=== PATIENT | male | born 2005 | race Caucasian/White ===

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

== ENCOUNTER → 2024-02-01 08:56 | Outpatient (REF) | payer OTHER, SELFPAY | LOC: HO.SL 08:56 | PROVIDERS: PCP Family Medicine; Visit Provider Physician Assistant Medical | DX: R06.83 Snoring (principal); G47.8 Other sleep disorders; R40.0 Somnolence; G47.10 Hypersomnia, unspecified | CPT/HCPCS: 95806 ==

== ENCOUNTER → 2024-02-02 09:33 | Outpatient (BNV) | payer OTHER, SELFPAY | PROVIDERS: PCP Family Medicine; Visit Provider Internal Medicine | DX: G47.10 Hypersomnia, unspecified (principal); R06.83 Snoring | CPT/HCPCS: 95806 ==

== ENCOUNTER 2024-02-29 02:18 | Emergency (ER) | payer OTHER, SELFPAY ==
[2024-02-29] VITALS (11 sets, daily range): BP systolic 89–148; BP diastolic 47–80; PULSE 73–113; RESP 16–22; TEMP 36.4–36.8; O2SAT 93–98; BMI 26.4
--- NOTE | 2024-02-29 02:30 | PC.NURSE ---
i'm not depressed, i just want to kill somebody . pt aggressively attempting to get out of restraints. security at bedside
--- NOTE | 2024-02-29 02:40 | ED_ITS ---
HPI - General Adult General Chief complaint: Psychiatric Symptoms Stated complaint: Psych eval, SI/HI in custody Time Seen by Provider: 02/29/24 02:25 Source: family (Parents), EMS and police Mode of arrival: EMS Limitations: altered mental status History of Present Illness ED Provider: DR. Lua HPI narrative: Patient was found by the police wandering the streets EMS was called, Unable to obtain history from the patient due to agitation and aggression, parents at the bedside patient with history ADHD, chronic major depression with treatment, suicidal ideation. Parents think that he drinks alcohol occasionally do not think other substance abuse except for marijuana. Related Data Home Medications ?Medication ?Instructions ?Recorded ?Confirmed fluoxetine 40 mg capsule 40 mg PO DAILY 09/15/23 09/15/23 lisdexamfetamine 10 mg capsule 20 mg PO DAILY 09/15/23 09/15/23 trazodone 50 mg tablet 50 mg PO DAILY 09/15/23 09/15/23 Allergies Allergy/AdvReac Type Severity Reaction Status Date / Time Seasonal Allergies Allergy Mild Watery Eye Verified 02/29/24 02:42 Review of Systems 2 Review of Systems: Yes Unobtainable due to mental condition PMFSH Past Medical History Medical History IFG (impaired fasting glucose) Daytime somnolence Snoring Non-restorative sleep ADHD Surgical History History of placement of ear tubes Family History Family History Father High blood pressure Paternal Grandfather High blood pressure Melanoma Maternal Grandfather Substance abuse in family Paternal Uncle Mental health disorder Unknown Mental health disorder Social History Social History Household Members: Family Housing: House Are you a primary adult daycare coordinator to a significant other at home: No Do you presently have visiting nurse or other home services: No Alcohol intake: current Alcohol intake frequency: holidays/special occasions only Alcohol type: beer and hard liquor Patient Tobacco Use Status: Never used Tobacco e-Cigarette/Vaping Use: Currently Using Second Hand Smoke Exposure: No Substance Use Type: Marijuana Special debbi needs: No Advance Directives: No Advance Directives Information Provided: Yes service: No Current occupational status: unemployed Cognitive needs: No Hearing needs: No Vision needs: No Physical Exam ED Vital Signs: Vital Signs - 24 hr 02/29/24 02:41 02/29/24 02:55 02/29/24 03:10 Temperature 98.3 F 98.0 F Pulse Rate 113 H 96 90 Respiratory Rate 22 H 21 H 20 Blood Pressure 116/67 93/57 L 100/54 L Pulse Oximetry 95 93 Oxygen Delivery Method Room Air Room Air Room Air 02/29/24 03:25 02/29/24 04:00 02/29/24 06:00 Temperature 97.6 F Pulse Rate 91 89 75 Respiratory Rate 21 H 16 19 Blood Pressure 108/49 L 92/47 L 89/53 L Pulse Oximetry 93 95 Oxygen Delivery Method Room Air Room Air Room Air 02/29/24 06:09 02/29/24 06:43 Temperature Pulse Rate 73 Respiratory Rate 16 Blood Pressure 96/48 L 99/53 L Pulse Oximetry 95 Oxygen Delivery Method Room Air BMI result Body Mass Index 26.4 Vital signs have been reviewed and appear to be correct. Blood pressure elevated. Heart rate normal. Respiratory rate normal. Temperature normal. Oxygen saturation normal. Appearance: Alert. Awake agitated, belligerent. Head: Normal external exam. Normocephalic. Atraumatic. No Kelly signs noted. raccoon eyes noted Eyes: PERRLA. EOMI. Conjunctiva and sclera normal. Eyelids normal. ENT: TM's Normal. Pharynx normal. Uvula midline. Moist mucous membranes. No trismus noted. No drooling noted. No muffled voice noted. Neck: Normal inspection. Neck supple. FROM. No adenopathy. Thyroid Normal. No meningeal signs. No neck mass noted. CVS: Normal heart rate and rhythm. Heart sound normal. No murmurs noted. Pulses normal throughout. Respiratory: No respiratory distress. Painless inspiration. Breath sounds normal. No wheezes/rales/rhonchi noted. Chest nontender. No accessory muscle usage noted or decreased air movement noted. Abdomen: Soft and nontender. Bowel sounds normal in all 4 quadrants. No distention noted. No organomegaly noted. No visible injury noted. Back: No CVA tenderness. Full range of motion noted. Skin: Skin warm and dry. Normal skin color. Normal skin turgor. No rashes/lesions/lacerations noted. Extremities: No lower extremity edema. Extremities exhibit normal range of motion. Extremities nontender. Neuro: Cranial nerve exam: II-XII are grossly intact No motor deficit. No sensory deficit. Reflexes normal. Course Reevaluation(s) Reevaluation #1: Patient is sedated and off physical restraints, signed out to Dr. George for further evaluation when he is awake and care team evaluation. Time: 07:13 Medications Administered Discontinued Medications Generic Name Dose Route Start Last Admin Trade Name Freq PRN Reason Stop Dose Admin Diphenhydramine HCl 50 mg 02/29/24 02:26 02/29/24 02:53 Diphenhydramine Hcl 50 Mg/Ml Vial IM 02/29/24 02:27 50 mg ONCE ONE Administration Haloperidol Lactate 5 mg 02/29/24 02:26 02/29/24 02:53 Haloperidol Lactate 5 Mg/Ml Vial IM 02/29/24 02:27 5 mg ONCE ONE Administration Lorazepam 2 mg 02/29/24 02:26 02/29/24 02:53 Lorazepam 2 Mg/Ml Vial IM 02/29/24 02:27 2 mg ONCE ONE Administration Medical Decision Making Differential Diagnosis Differential Diagnoses: The differential diagnosis associated with the presentation includes (SI, HI, substance abuse, alcohol intoxication.) Admission/Observation Consideration of admission/observation: Escalation of care including admission/observation considered Lab Data MDM Lab Attestation statement: I reviewed the patient's lab results. 02/29/24 03:09 02/29/24 03:09 Labs: Lab Results 02/29/24 Range/Units 03:09 WBC 9.7 (4.8-10.8) X10*3/uL RBC 4.90 (4.60-5.80) X10*6/uL Hgb 14.5 (14.0-18.0) g/dl Hct 43.0 (42.0-52.0) % MCV 87.8 (80.0-98.0) fL MCH 29.6 (27.0-33.0) pg MCHC 33.7 (31.0-36.0) g/dl RDW 12.6 (11.0-16.0) % Plt Count 220 (160-400) X10*3/uL MPV 11.1 (9.4-12.4) fL Immature Gran % (Auto) 0.3 (0.0-0.4) % Neut % (Auto) 57.4 (45-73) % Lymph % (Auto) 31.7 (20-40) % [place] % (Auto) 6.2 (2-11) % Eos % (Auto) 3.8 (0-4) % Baso % (Auto) 0.6 (0-2) % Lymph # (Auto) 3.1 (1.2-4.9) X10*3/uL [place] # (Auto) 0.6 (0.1-1.2) X10*3/uL Eos # (Auto) 0.4 (0.0-0.4) X10*3/uL Baso # (Auto) 0.1 (0.0-0.2) X10*3/uL Abs Immat Gran (auto) 0.03 (0.00-0.03) X10*3/uL Absolute Neuts (auto) 5.5 (2.0-8.3) x10*3/uL Absolute Nucleated RBC 0.000 (0.0-0.012) X10*3/uL Nucleated RBC % (auto) 0.0 (0.0-0.2) /100WBC Sodium 143 (135-145) mmol/L Potassium 3.3 (3.3-5.1) mmol/L Chloride 108 (96-108) mmol/L Carbon Dioxide 18 L (22-29) mmol/L Anion Gap 20 (12-20) BUN 9 (9-16) mg/dL Creatinine 0.94 (0.5-1.4) mg/dL Estim Creat Clear Calc 138.7 Estimated GFR > 60 Random Glucose 109 (60-115) mg/dL Calcium 9.0 (8.4-10.2) mg/dL Ethyl Alcohol 153 mg/dL Discharge Plan Discharge Clinical Impression: Alcohol intoxication, Suicidal ideation Patient Disposition: Still a Patient Prescriptions: No Action fluoxetine 40 mg capsule 40 mg PO DAILY trazodone 50 mg tablet 50 mg PO DAILY lisdexamfetamine 10 mg capsule 20 mg PO DAILY Print Language: Senegalese
[2024-02-29] MEDS: LORazepam 2 MG/ML VIAL IM (02:53)
[2024-02-29] MEDS: Haloperidol Lactate 5 MG/ML VIAL IM (02:53)
[2024-02-29] MEDS: diphenhydrAMINE HCL 50 MG/ML VIAL IM (02:53)
--- NOTE | 2024-02-29 02:57 | PC.NURSE ---
Mom and dad here, patient phone given to mom and dad at this time.......
[2024-02-29 03:12] LABS: MANUAL DIFF FLAG NO
[2024-02-29 03:13] LABS: Basophils Absolute Auto 0.1 X10*3/uL (0.0-0.2); Basophils Percent Auto 0.6 % (0-2); Eosinophils Absolute Auto 0.4 X10*3/uL (0.0-0.4); Eosinophils Percent Auto 3.8 % (0-4); Hemoglobin 14.5 g/dl (14.0-18.0); Imm Gran Abs Auto 0.03 X10*3/uL (0.00-0.03); Imm Gran Pct Auto 0.3 % (0.0-0.4); Lymphocytes Absolute Auto 3.1 X10*3/uL (1.2-4.9); Lymphocytes Percent Auto 31.7 % (20-40); Mean Corpuscular HGB Conc 33.7 g/dl (31.0-36.0); Mean Corpuscular Hemoglobin 29.6 pg (27.0-33.0); Mean Corpuscular Volume 87.8 fL (80.0-98.0); Mean Platelet Volume 11.1 fL (9.4-12.4); Monocytes Absolute Auto 0.6 X10*3/uL (0.1-1.2); Monocytes Percent Auto 6.2 % (2-11); Neutrophils Absolute Auto 5.5 x10*3/uL (2.0-8.3); Neutrophils Percent Auto 57.4 % (45-73); Platelet Count 220 X10*3/uL (160-400); Red Cell Distribution Width 12.6 % (11.0-16.0); White Blood Count 9.7 X10*3/uL (4.8-10.8)
[2024-02-29 03:28] LABS: Anion Gap 20 (12-20); Blood Urea Nitrogen 9 mg/dL (9-16); Carbon Dioxide 18 mmol/L (22-29); Chloride 108 mmol/L (96-108); Creatinine Clr Calc Pharmacy 138.7; Estimated Glomerular Filt Rate > 60; Ethanol 153 mg/dL; Glucose Random 109 mg/dL (60-115); Potassium 3.3 mmol/L (3.3-5.1); Sodium 143 mmol/L (135-145)
--- NOTE | 2024-02-29 03:37 | PC.NURSE ---
Patient adamently refused the enema down here in the emergency department; studio set up worker Micah at bedside interpreting for this nurse. Charge nurse notified that patient is refusing the enema down here in the ED at this time, in the patients exact words, I don't want to shit myself. MD is aware that enema has not been given yet. To protect patient dignitiy and rights this nurse will not administer the enema per the patient request.
--- NOTE | 2024-02-29 04:08 | PC.NURSE ---
Patient's parents brought back to see patient for comfort and reassurance. Parents both expressed that the patient is dyslexic, has ADHD, is very literal, and has both expressive and receptive learning disability. Cornell and Monica are parents and can be reached at [phone]
--- NOTE | 2024-02-29 07:13 | PC.NURSE ---
patient resting with eyes closed, even and unlabored respirations. remains on awake overnight monitor. 1:1 patient observer at bedside. no obvious signs/symptoms of distress. plan for patient to ambulate trial and go to pod when awake.
--- NOTE | 2024-02-29 08:55 | PC.NURSE ---
Addendum entered by Nina Fry 02/29/24 09:19: belongings placed in aldo port shelf 2 Original Note: family visited briefly, brought clothes and shoes for patient pending discharge - searched by security.
--- NOTE | 2024-02-29 09:14 | MHC.CARE ---
Per pt's AM nurse, there was no enema ordered on this pt. Previous notes must have been made in error.
--- NOTE | 2024-02-29 13:33 | MHC.CARE ---
Referrals to [facility] & [facility] completed.
[2024-02-29 13:59] LABS: Amphetamine Screen Urine POSITIVE (Not Detect); Barbiturates, Urine Not Detected (Not Detect); Benzodiazepines Screen Urine Not Detected (Not Detect); Buprenorphine Scr Not Detected (Not Detect); Cannabinoid Screen Urine POSITIVE (Not Detect); Cocaine Screen Urine Not Detected (Not Detect); Fentanyl, urine Not Detected (Not Detect); Methadone Screen, Urine Not Detected (Not Detect); Opiate Screen Urine Not Detected (Not Detect); Oxycodone Screen Urine Not Detected (Not Detect); Phencyclidine Screen Urine Not Detected (Not Detect)
== END 2024-02-29 13:44 | disposition home or self-care (01) ==
PROVIDERS: Emergency Medicine; Emergency Provider Emergency Medicine
DX: F10.129 Alcohol abuse with intoxication, unspecified (principal); R45.851 Suicidal ideations; Y90.6 Blood alcohol level of 120-199 mg/100 ml; Z51.81 Encounter for therapeutic drug level monitoring; Z79.899 Other long term (current) drug therapy; Z71.41 Alcohol abuse counseling and surveillance of alcoholic
CPT/HCPCS: 36415; 80048; 80307; 85025; 96372; 99284; 99285; J1200; J1630; J2060; S9485

== ENCOUNTER 2024-03-21 11:15 | Outpatient (RCR) | payer OTHER, SELFPAY ==
[2024-03-03 11:43] VITALS: BMI 29.0
[2024-03-03 11:44] VITALS: BP 114/80; PULSE 88; TEMP 37.2
--- NOTE | 2024-03-03 15:47 | PC.ADMIT ---
Patient is a 18 year old single male who was referred to [facility] by [facility] care team. Per records patient presented to ER via EMS for SI and HI. Patient was in police custody and was voluntarily handcuffed as this was the only way patient would agree to go into the ambulance if he was handcuffed. He reportedly attempted to strangle himself with straps and cuffs with is hands to his throat while in the ED. He stated, I don't have the balls to go through it. He has a history of SI statements in the past and appeared intoxicated at the time. BAL 153 on 02/29/24. Toxicology screen positive for Marijuana. Patient reportedly called EMS on himself and was having issues r/t a female and new job prospect causing him stress. I asked patient what happened prior to coming to the ER and he stated, It was February 26 I came into the ER based off alcohol but before drinking the alcohol I had feelings I wanted to in a general sense. I had 2 beers and 3-4 shots I felt it was a cry for help at that point. I called the suicide hotline and they did not answer and I ended up calling 911. I was 8 months sober and ended up relapsing twice. I reached out to get help . Patient reports goal of treatment is to find happiness and better well being on life and a better outcome. Regarding employment patient stated, I started a job I have orientation on the . Patient is currently alert and oriented x4. Calm and cooperative. He presented with anxious mood and affect. He denied SI. He was given a copy of his safety plan if needed. Regarding HI he stated, I kind of have harmful intrusive thoughts about people that are on and off they pop up once in a while. I'm looking over my shoulder more, I feel like I'm being followed in a way. I'm on edge. If I'm with my family of friends those feelings go away. He reports the harmful thoughts are not toward anyone specific. He stated, not toward anyone in specific to kill someone. It is intriguing to me. I don't have a plan because I don't want to upset my parents . I asked him what are the thoughts like and he stated, When I walk into a room I think oh they are easy to kill. I have been feeling this way for the past 11 months. Patient reports no plans or intent to kill anyone. He stated, As long as my mom or dad are alive and I know how they would feel . Dr. Sandoval was informed. Medications reconciled with patient and patient's pharmacy. He reports taking medications as prescribed. Stated he is no longer taking Trazodone last filled April 2023. Patient reports alcohol use drinking 2 beers and 5 shots. He stated, I have been sober for 9 months and 2 months ago i relapsed for the first time and I did it again on the . Reports he uses marijuana and has cut down his use now using 1/8th every 2 weeks compared to daily use.
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
--- NOTE | 2024-03-08 10:37 | HO.PHP ---
[facility] staff member faxed over a referral for OP therapy and a passenger coach driver to [facility] for Mello. [facility] staff member is awaiting on a phone call back with those scheduled dates and appointment times.
--- NOTE | 2024-03-08 15:28 | HO.PHP ---
[facility] staff member reached out to Mello to make sure he is safe due to him leaving program before the last group began. Mello did not answer his phone and a voicemail was left. Mello did not return the clinician's phone call, which led to the clinician reaching out to his mother Monica. Monica was unaware if he was okay but stated she would contact me and call me back. Monica mentioned that she was able to get a hold of him and stated that he informed her that he left the program because it was too hot in the room and it was causing him a headache. [facility] staff member was receptive and informed her that if he does have to leave again in the future to just make the team aware so we can help support. Monica voiced that she will reiterate that information to him. Monica explored what we are doing for the last group as well and speculated if his learning disability is playing a role in to why he is leaving before that group. [facility] staff member disclosed that from what she has observed Mello has been doing well within the group setting. Monica expressed that is how he presents sometimes but he doesn't fully understand at times. [facility] staff was receptive and thanked her for providing her input.
--- NOTE | 2024-03-09 12:44 | HO.PHPPROGNO ---
Subjective Subjective Date of Service: 03/09/24 Reason For Visit: depression,ADHD Interim History: Interim Hx: per clinician, pt writing in his arm and hand kill me, kill me. Pt reports feeling depressed, hopeless. While exploring these feelings, it appears pt feels like his parents are very caring and supportive, as well as his brother but he does not feel the same about the outside world. He reports at school he felt people saw him as dumb or stupid because conditions such as ADHD and Dyslexia. He also reports recently feeling disappointed and somewhat rejected by a Girl with whom he was hoping to have a romantic relationship. Pt uses word paranoid but he does not appear delusional or psychosis when one further explores what he means by this. He showed this freelance writer note that his mother wrote for him to show prescriber in terms of his irritability and lack of sleep. He reports sleep has been broken- falls asleep but then is up by midnight or 3am. Mental Status Exam Mental Status Exam Narrative: Appearance: wearing casual clothing, good hygiene, in NAD Behavior: friendly and cooperative. Psychomotor: no agitation or retardation noted Speech: clear, normal rate/rhythm/volume, spontaneous TP: linear TC: no psychotic nor delusional content, although pt does use word I'm paranoid to describe unsafe community he lives in here in [place] and how he feels he has to look over his shoulder when he is walking around [place]. Mood: same Affect: he does brighten up as conversation goes on. SI: denies. He does report feeling of self-worth and in that context reports writing kill me kill me but not actually wanting to be killed or HI: denies VH/AH: does not appear Delusions: again do no suspect pt has delusional content, specially after exploring more what he means by some of the more provocative statements or gestures. Insight/judgment: fair x 2. memory/cog: alert, oriented x 3. grossly intact to conversational testing. Diagnostics Vital Signs (24Hr): BMI result Body Mass Index 29.0 Assessment & Plan Assessment & Plan (1) Attention-deficit hyperactivity disorder, unspecified type: Status: Acute Code(s): F90.9 - Attention-deficit hyperactivity disorder, unspecified type (2) Mood disorder: Status: Acute Code(s): F39 - Unspecified mood [affective] disorder Plan Pt presents little bit better, in terms of mood and hopefulness. He denies SI/HI. He had written on his hands kill me kill me but reports these are related to feeling of worthless in context of particular relationship. We discussed in terms of sleep, that maybe Vyvasse may be affecting his sleep and considering switch to methyphenidate product. Also, wonder if some of irritability may be related to amphetamine base stimulant and if methylphenidate may have less effect on these symptoms. He can try stopping vyvanse for some days and see how it affects his sleep. He does not appear particularly paranoid nor internally preoccupied, although he often uses words like feeling paranoid but to explain that he does not feel safe walking around [place] and he does worried that the town is not safe as it used to. Certification I certify that partial hospital treatment is medically necessary due to the symptoms and problems resulting from the patient's mental illness and the failure to treat the patient at the partial hospital level of care would likely result in the patient requiring inpatient psychiatric care which could not be prevented at a less intensive level of care. Total time managing care of this patient today ____ minutes. Discharge Plan Discharge Attending provider: Nathaly Sandoval Medications: New Vraylar 1.5 mg capsule 1.5 mg PO BEDTIME Qty: 14 0RF guanfacine 1 mg tablet extended release 24 hr 1 mg PO DAILY Qty: 30 0RF Continued fluoxetine 40 mg capsule 40 mg PO DAILY Rx Instructions: Last Filled 02/03/24 lisdexamfetamine 10 mg capsule 20 mg PO DAILY Rx Instructions: Last filled 02/02/24 Stand Alone Forms: Patient Portal Discharge page Print Language: Cape Verdean
--- NOTE | 2024-03-09 13:31 | HO.PHP ---
[facility] staff member received a voicemail from Mello's mother, Monica, who disclosed that his paternal grandmother is on hospice and isn't doing well. Monica was seeking advise around how to approach this situation without having Mello go into a crisis. Monica voiced that Mello is very close with her. PHP staff member suggested that Monica is open with Mello around the severity of what is going on with his grandmother and allow him the space to openly process, along with seeing what he would like to do, whether that be to go see her to have additional time. Monica was receptive and thanked the clinician for the suggestion. [facility] staff member also encouraged her to closely monitor him after she provides him with this information if she is worried about him becoming dysregulated. PHP staff member noted if they are unable to regulate Mello or hes expressing risk factors to reach out to crisis as needed. Monica was in agreement.
--- NOTE | 2024-03-20 09:53 | HO.PHP ---
PHP staff member Shell, reached out to Mello due to him not showing up to program. Shell left him a voicemail and is awaiting a call back. [facility] staff member Hayley, reached out to Monica, Mello's mother to make sure Mello is safe. Mello and Monica both left voicemail's stating that he won't be in attendance to program due to him attending his grandmother's . Monica voiced that Mello will be in attendance to program tomorrow.
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
--- NOTE | 2024-03-27 14:42 | HO.PHP ---
[facility] staff member received a phone call from Mello's mother, Monica, stating that Mello had an OP therapy appointment through [facility] today but went to the wrong location and she was seeking support in rescheduling the appointment. PHP staff member disclosed that a number was provided for him to contact if he needs to reschedule. Monica noted that he has been calling that number but has not received a call back at this time to reschedule. [facility] staff member provided her with an individuals number through [facility] who works in [employer]. PHP staff member disclosed that she is unaware if she will be able to reschedule but she may be able to better direct her. Monica then began talking about the section 12 and was trying to explain how Mello's language disorder impacts him and provided examples. PHP staff member voiced that she can't speak on that situation since she was not apart of the conversation and encouraged her to reach out to Dr. Sandoval for further insight. Monica was receptive. PHP staff member informed Treva that Mello's mother has some questions for Dr. Sandoval regarding medical.
== END 2024-03-31 08:37 | disposition admitted as inpatient to this hospital (09) ==
LOC: HO.PHPA 11:15
PROVIDERS: Visit Provider Psychiatry & Neurology Psychiatry
DX: F33.3 Major depressive disorder, recurrent, severe with psychotic symptoms (principal); F90.9 Attention-deficit hyperactivity disorder, unspecified type; F39 Unspecified mood [affective] disorder; F41.8 Other specified anxiety disorders; F10.14 Alcohol abuse with alcohol-induced mood disorder; R48.0 Dyslexia and alexia
CPT/HCPCS: 90791; 90853

== ENCOUNTER 2024-03-21 13:51 | Inpatient (IN) | payer OTHER, SELFPAY ==
[2024-03-21 13:52] VITALS: BP 124/80; PULSE 111; RESP 20; TEMP 37; O2SAT 99; BMI 29.8
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
[2024-03-21 14:32] VITALS: BP 146/100; PULSE 100; RESP 18; TEMP 36.7; O2SAT 98
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
--- NOTE | 2024-03-21 16:09 | PC.NURSE ---
Pt sleeping at this time, no acute distress
[2024-03-21 16:36] LABS: MANUAL DIFF FLAG NO
--- NOTE | 2024-03-21 16:36 | PC.NURSE ---
Med rec completed by this RN. Pt calm and cooperative with blood draws and urine. No issues
[2024-03-21 16:39] LABS: Appearance Urine Clear; Color Urine Yellow; Glucose Urine UA Negative (Negative); Leukocyte Esterase Urine Negative (Negative); Nitrite Urine Negative (Negative); Specific Gravity - Urine <= 1.005 (1.005-1.025); Urine Blood Negative (Negative); Urine Ketones Negative (Negative); Urine Protein Negative (Neg-Trace)
[2024-03-21 16:40] LABS: Basophils Absolute Auto 0.1 X10*3/uL (0.0-0.2); Basophils Percent Auto 0.4 % (0-2); Eosinophils Absolute Auto 0.2 X10*3/uL (0.0-0.4); Eosinophils Percent Auto 1.5 % (0-4); Hemoglobin 15.7 g/dl (14.0-18.0); Imm Gran Abs Auto 0.05 X10*3/uL (0.00-0.03); Imm Gran Pct Auto 0.4 % (0.0-0.4); Lymphocytes Percent Auto 17.9 % (20-40); Mean Corpuscular HGB Conc 33.4 g/dl (31.0-36.0); Mean Corpuscular Hemoglobin 29.4 pg (27.0-33.0); Mean Platelet Volume 11.2 fL (9.4-12.4); Monocytes Absolute Auto 0.7 X10*3/uL (0.1-1.2); Monocytes Percent Auto 6.5 % (2-11); Neutrophils Absolute Auto 8.2 x10*3/uL (2.0-8.3); Neutrophils Percent Auto 73.3 % (45-73); Platelet Count 211 X10*3/uL (160-400); Red Blood Count 5.34 X10*6/uL (4.60-5.80); Red Cell Distribution Width 12.8 % (11.0-16.0); White Blood Count 11.2 X10*3/uL (4.8-10.8)
[2024-03-21 16:44] LABS: Bacteria Urine None Seen (None Seen); Hyaline Casts Urine 0-2 /LPF (0-2); RBC Urine 0-2 /HPF (0-2); Squamous Epithelial Cell Urine 0-2 /HPF (0-2); WBC Urine 0-5 /HPF (0-5)
[2024-03-21 16:48] LABS: Amphetamine Screen Urine Not Detected (Not Detect); Barbiturates, Urine Not Detected (Not Detect); Benzodiazepines Screen Urine Not Detected (Not Detect); Buprenorphine Scr Not Detected (Not Detect); Cannabinoid Screen Urine POSITIVE (Not Detect); Cocaine Screen Urine Not Detected (Not Detect); Fentanyl, urine Not Detected (Not Detect); Methadone Screen, Urine Not Detected (Not Detect); Opiate Screen Urine Not Detected (Not Detect); Oxycodone Screen Urine Not Detected (Not Detect); Phencyclidine Screen Urine Not Detected (Not Detect)
[2024-03-21 16:51] LABS: Ethanol < 10 mg/dL
[2024-03-21 16:53] LABS: Alanine Aminotransferase 22 U/L (0-40); Albumin Level 4.4 g/dL (3.5-5.0); Alkaline Phosphatase 87 U/L (39-117); Anion Gap 13 (12-20); Aspartate Amino Transferase 26 U/L (5-37); Bilirubin Total 0.5 mg/dL (0.0-1.0); Blood Urea Nitrogen 12 mg/dL (9-16); Calcium 9.5 mg/dL (8.4-10.2); Carbon Dioxide 25 mmol/L (22-29); Chloride 107 mmol/L (96-108); Creatinine Clr Calc Pharmacy 130.5; Estimated Glomerular Filt Rate > 60; Glucose Random 85 mg/dL (60-115); Potassium 4.6 mmol/L (3.3-5.1); Sodium 140 mmol/L (135-145); Total Protein 7.2 g/dL (6.5-8.0)
[2024-03-21 16:56] LABS: Salicylate < 5.0 mg/dL (15-30)
--- NOTE | 2024-03-21 19:44 | PC.NURSE ---
Parents have approached this RN at the nurse's station multiple times since starting shift at 19:00. Mom asking regarding what paperwork Mello has signed today due to concerns about Dyslexia & learning/processing disorders and not understanding what he has signed. Mom asking if she can take Mello home and back to 'his program' tonight or tomorrow. This RN explained that as of this moment, patient is on a Section 12, and CARE child care team lead (Mary Kate Rees) is speaking with CARE tractor driver teamster (Leonor Grissom) to clarify the plan with Mello. This RN was told that plan is likely for inpatient bedsearch. CARE team is at bedside at this time speaking with parents & patient regarding plan and discussing patient & family's concerns. Section 12 remains active/in place at this time. Care ongoing by this RN.
[2024-03-21 20:44] VITALS: BP 135/87; PULSE 70; RESP 20; TEMP 36.4; O2SAT 97
--- NOTE | 2024-03-21 23:15 | PC.NURSE ---
Transferred to via wheelchair with nurse Ashlee Tuttle & security. Room 516.
[2024-03-21 23:36] VITALS: BP 159/92; PULSE 91; RESP 16; TEMP 35.9; O2SAT 100
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
[2024-03-22 08:00] VITALS: BP 151/82; PULSE 70; RESP 16; TEMP 36.4; O2SAT 98
[2024-03-22 09:37] LABS: Alanine Aminotransferase 19 U/L (0-40); Albumin Level 4.5 g/dL (3.5-5.0); Alkaline Phosphatase 91 U/L (39-117); Anion Gap 14 (12-20); Aspartate Amino Transferase 20 U/L (5-37); Bilirubin Total 0.9 mg/dL (0.0-1.0); Blood Urea Nitrogen 11 mg/dL (9-16); Calcium 9.5 mg/dL (8.4-10.2); Carbon Dioxide 27 mmol/L (22-29); Chloride 104 mmol/L (96-108); Cholesterol 177 mg/dL (<200); Creatinine Clr Calc Pharmacy 145.7; Estimated Glomerular Filt Rate > 60; Glucose Fasting 84 mg/dL (60-99); HDL Cholesterol 49 mg/dL (>40); LDL Cholesterol Calculated 116 mg/dL (<100); Potassium 4.2 mmol/L (3.3-5.1); Sodium 141 mmol/L (135-145); Total Protein 7.2 g/dL (6.5-8.0); Triglycerides 63 mg/dL (<150)
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
--- NOTE | 2024-03-22 17:41 | PM.PSYDC ---
DS: Providers Provider Date of Service: 03/22/24 Date of admission: 03/21/24 21:07 Date of discharge: 03/22/24 Primary care physician: Unknown Physician Admitting clinician: Swati Wiggins Attending physician on admission: Gregg Rachel Attending physician on discharge: Gregg Rachel Discharging clinician: Swati Wiggins DS: Diagnosis Discharge Diagnosis (1) Mixed anxiety and depressive disorder: Status: Acute (2) Attention-deficit hyperactivity disorder, unspecified type: Status: Acute (3) Dyslexia: Status: Acute (4) Developmental language disorder: Status: Acute (5) Cannabis use disorder: Status: Acute DS: Medications Discharge Medications Home Medications: Home Medications ?Medication ?Instructions ?Recorded ?Confirmed fluoxetine 40 mg capsule 40 mg PO DAILY 09/15/23 03/21/24 lisdexamfetamine 10 mg capsule 20 mg PO DAILY 09/15/23 03/21/24 Previous Rx's ?Medication ?Instructions ?Recorded guanfacine 1 mg tablet,extended 1 mg PO DAILY as directed #30 tabs 03/03/24 release 24 hr Mental Status Exam Mental Status Exam Patient Appearance: Appropriate Patient Orientation: Person, Place, Time and Situation Level of Consciousness: Alert Patient Behavior: Appropriate, Talkative, Cooperative, Anxious, Fearful, Distractible and Good Eye Contact Mood Description: Anxious Affect Description: Anxious Patient Cognition Impaired: No Ability to Follow Directions: Good Speech Pattern: Spontaneous Speech and Soft-Spoken Memory Description: Intact Hallucinations: None Delusions: Not Present Thought Process: Intact and Goal Oriented Thought Content: positive for Intact, positive for Goal Oriented, positive for Suicidal Ideation (denies) and positive for Homicidal Ideation (denies) Depressive Symptoms: Increased Anxiety and Thoughts of /Suicide (denies) Judgement: Good Data Data Completed and Pending Completed studies during hospitalization [Text1]: 03/21/24 03/22/24 16:30 08:56 WBC 11.2 H RBC 5.34 Hgb 15.7 Hct 47.0 MCV 88.0 MCH 29.4 MCHC 33.4 RDW 12.8 Plt Count 211 MPV 11.2 Immature Gran % (Auto) 0.4 Neut % (Auto) 73.3 H Lymph % (Auto) 17.9 L [place] % (Auto) 6.5 Eos % (Auto) 1.5 Baso % (Auto) 0.4 Lymph # (Auto) 2.0 [place] # (Auto) 0.7 Eos # (Auto) 0.2 Baso # (Auto) 0.1 Abs Immat Gran (auto) 0.05 H Absolute Neuts (auto) 8.2 Absolute Nucleated RBC 0.000 Nucleated RBC % (auto) 0.0 Sodium 140 141 Potassium 4.6 D 4.2 Chloride 107 104 Carbon Dioxide 25 27 Anion Gap 13 14 BUN 12 11 Creatinine 1.05 0.94 Estim Creat Clear Calc 130.5 145.7 Estimated GFR > 60 > 60 Random Glucose 85 Fasting Glucose 84 Calcium 9.5 9.5 Total Bilirubin 0.5 0.9 AST 26 20 ALT 22 19 Alkaline Phosphatase 87 91 Total Protein 7.2 7.2 Albumin 4.4 4.5 Triglycerides 63 Cholesterol 177 LDL Cholesterol, Calc 116 H HDL Cholesterol 49 Urine Color Yellow Urine Appearance Clear Urine pH 7.0 Ur Specific [place] <= 1.005 Urine Protein Negative Urine Glucose (UA) Negative Urine Ketones Negative Urine Blood Negative Urine Nitrite Negative Ur Leukocyte Esterase Negative Urine RBC 0-2 Urine WBC 0-5 Ur Squamous Epith Cells 0-2 Urine Bacteria None Seen Hyaline Casts 0-2 Salicylates < 5.0 L Urine Opiates Screen Not Detected Ur Buprenorphine Scrn Not Detected Ur Oxycodone Screen Not Detected Urine Methadone Screen Not Detected Urine Fentanyl Screen Not Detected Ur Barbiturates Screen Not Detected Ur Phencyclidine Scrn Not Detected Ur Amphetamines Screen Not Detected U Benzodiazepines Scrn Not Detected Urine Cocaine Screen Not Detected U Marijuana (THC) Screen POSITIVE H Ethyl Alcohol < 10 DS: Summary Hospital Course Hospital Course: Admission to adult psychiatry for exacerbation of depression with reported HI. Pt has a developmental language disorder since age 11 months, dyslexia, ADHD. His grandmother last week and he attended her on 03/20/24. His crisis interview was given with literal responses which appear to have been misinterpreted. Toxicology positive for cannabis. Met with pt and parents. Both pt and parents do not believe in pt care is required. Pt will discharge. He has an appt on 03/27/24 with [facility] for psychotherapy Denies SI/HI/AH/VH. There are no sx of acute annie or psychosis Status at Discharge Functional status at discharge: independent ambulation Overall status at discharge: patient is back to baseline Time Spent with Patient Time attestation: Total time managing care of this patient today ____ minutes. Time spent: Less than 30 minutes Discharge Plan Discharge Anticipated Discharge Date/Time: 03/22/24 12:00 Patient Disposition: Home, Self-Care Discharge Diagnosis: Developmental Language Disorder Dyslexia ADHD Acute Stress Reaction to of grandmother a few days ago Depression Referrals: Physician,Nimo J [Primary Care Provider] - ([facility] Appointment already scheduled for 03/27) Discharge Medications: Continued guanfacine 1 mg tablet extended release 24 hr 1 mg PO DAILY Qty: 30 0RF fluoxetine 40 mg capsule 40 mg PO DAILY Rx Instructions: Last Filled 02/03/24 lisdexamfetamine 10 mg capsule 20 mg PO DAILY Rx Instructions: Last filled 02/02/24 Discharge Orders: Discharge Order (Routine); Ordered 03/22/24 Ordered By: Swati Wiggins Diet: Advance to usual diet Activity on Discharge: As tolerated Stand Alone Forms: Patient Portal Discharge page, Community Support Print Language: Belarusian Care Plan Goals: Mood and Behavioral Stabilization Health Concerns: Mood and Behavioral Stabilization Plan of Treatment: Attend scheduled appointments. --[facility] appt 03/27/24 Take medications as directed by your out pt psychiatrist, Dr. Browne Call/Return as needed Assessment: Meeting with patient and parents to create a plan of care. No SI,HI,AH,VH No sx of psychosis, annie Pt will return home with parents. Discharge Date/Time: 03/22/24 12:31
== END 2024-03-22 12:31 | disposition home or self-care (01) | DRG 880 ==
LOC: HO.ED 21:31 → HO.PM5 21:39
PROVIDERS: Admitting Provider Psychiatry & Neurology Psychiatry; Emergency Provider Emergency Medicine; Visit Provider Clinical Nurse Specialist Psychiatric/Mental Health, Adult
DX: F41.8 Other specified anxiety disorders (principal); R45.851 Suicidal ideations; F90.9 Attention-deficit hyperactivity disorder, unspecified type; R45.850 Homicidal ideations; R48.0 Dyslexia and alexia; F80.9 Developmental disorder of speech and language, unspecified; F12.90 Cannabis use, unspecified, uncomplicated; Z79.899 Other long term (current) drug therapy
CPT/HCPCS: 36415; 80053; 80061; 80179; 80307; 81001; 85025; 99285; S9485

== ENCOUNTER → 2024-03-21 21:07 | Outpatient (BNV) | payer OTHER, SELFPAY | PROVIDERS: Admitting Provider Psychiatry & Neurology Psychiatry; Emergency Provider Emergency Medicine; Visit Provider Clinical Nurse Specialist Psychiatric/Mental Health, Adult | DX: F41.8 Other specified anxiety disorders (principal); F90.9 Attention-deficit hyperactivity disorder, unspecified type; R48.0 Dyslexia and alexia; F80.9 Developmental disorder of speech and language, unspecified; F12.90 Cannabis use, unspecified, uncomplicated | CPT/HCPCS: 99234; 99499 ==

== ENCOUNTER 2024-12-21 15:54 | Outpatient (AMB) | payer OTHER, SELFPAY ==
--- NOTE | 2024-12-21 15:57 | MHC.PC.OV ---
Vital Signs 12/21/24 16:02 12/21/24 17:03 Height 5 ft 10 in Weight 212 lb 2 oz BMI 30.4 BP 128/73 Blood Pressure Location Lt brachial Position Sitting Respiration 16 Pulse 114 H 96 Pulse Source Pulse Oximeter Auscultation Temp 98.6 F Temp Source Oral Pulse Oximetry (%) 98 Oxygen Delivery Method Room Air Intake Visit Reasons: CPE Intake Note: patient here for CPE Oven Press Tender Required: No Allergies Seasonal Allergies Allergy (Mild, Verified 12/21/24 16:00) Watery Eye Medication List - Last Reconciled 12/21/24 by Christiano Bowman MD fluoxetine 40 mg PO DAILY guanfacine ER 1 mg PO DAILY lisdexamfetamine 20 mg PO DAILY Tobacco use date assessed: 12/21/24 Dental Screening Dental Screen Date: 12/21/24 Did you have a dental visit in the last 12 months?: Yes Did you have a dental problem in the last 6 months where you did not have access to dental care?: No Was dental information given to patient?: Patient has dentist HPI CPE HPI Details 19 y/o male presents for a CPE with f/u labs and health maintenance. No recent labs to review. [facility] Medical History Developmental language disorder IFG (impaired fasting glucose) Daytime somnolence Snoring Non-restorative sleep ADHD Surgical History History of placement of ear tubes Family History Father High blood pressure Paternal Grandfather High blood pressure Melanoma Maternal Grandfather Substance abuse in family Paternal Uncle Mental health disorder Unknown Mental health disorder Social History (Updated 12/21/24 @ 16:01 by Thelma Chanel MA) Household Members: Family Household Members Other:: Mother, Father, Brother, and Brother's Girlfriend Both parents involved: Yes Caregiver staying overnight: No Housing: House Are you a primary home child care provider to a significant other at home: No Do you presently have visiting nurse or other home services: No 75 years or older and lives alone: No Alcohol intake: current Alcohol intake frequency: holidays/special occasions only Alcohol type: beer and hard liquor Patient Tobacco Use Status: Never used Tobacco e-Cigarette/Vaping Use: Currently Using Second Hand Smoke Exposure: No Substance Use Type: Marijuana Special debbi needs: No service: No Current occupational status: unemployed Current occupational exposures/hazards: No Cognitive needs: No Hearing needs: No Vision needs: No Questionnaire PHQ-9 Over the last 2 weeks, how often have you been bothered by any of the following problems? 1. Little interest or pleasure in doing things: not at all 2. Feeling down, depressed, or hopeless: not at all 3. Trouble falling or staying asleep, or sleeping too much: not at all 4. Feeling tired or having little energy: not at all 5. Poor appetite or overeating: several days 6. Feeling bad about yourself - or that you are a failure or have let yourself or your family down: not at all 7. Trouble concentrating on things, such as reading the newspaper or watching television: not at all 8. Moving or speaking so slowly that other people could have noticed. Or the opposite - being so fidgety or restless that you have been moving around a lot more than usual: not at all 9. Thoughts that you would be better off or of hurting yourself in some way: not at all Total score: 1 Depression Screening Interpretation: Negative Depression Screening Done: Yes 23129 - PHQ-9 Billing: Yes Source: Developed by Drs. Vito Yanez, Madalyn Rivera, Maury Ernst and colleagues, with an educational camelia from [employer]. Thrive Questionnaire Date Thrive assessed: 12/21/24 I am a: Patient What is your living situation today?: I have a steady place to live Within the past 12 months, did the food you bought not last and you didn't have the money to get more?: Often true Within the past 12 months, did you worry whether your food would run out before you got money to buy more?: Never true Do you have trouble paying for medicines?: No Do you have trouble getting transportation to medical appointments?: No Do you have trouble paying your heating and electricity bill?: No Do you have trouble taking care of your child, family member or friend?: No Do you have trouble with day-to-day activities such as bathing, preparing meals, shopping, managing finances, etc.?: No Are you currently unemployed and looking for a job?: No Are you interested in more education?: No Please select the resources that you would like help with: None Currently or been in a relationship where the following occur: No concerns reported THRIVE Score: 1 AUDIT C Alcohol Use Questionnaire (AUDIT-C) 1. How often do you have a drink containing alcohol?: Never 3. How often do you have six or more drinks on one occasion?: Never Total Score: 0 Score Reviewed/Action Taken: Yes ASHA-7 AMB Questionnaire ASHA-7 Date ASHA - 7 assessed: 12/21/24 Feeling nervous, anxious, or on edge: 0 = Not at all Not being able to stop or control worryin = Not at all Worrying too much about different things: 0 = Not at all Trouble relaxin = More than half the days Being so restless that it is hard to sit still: 0 = Not at all Becoming easily annoyed or irritable: 0 = Not at all Feeling afraid as if something awful might happen: 0 = Not at all Total ASHA-7 score (0-4 normal; 5-9 mild; 10-14 moderate; 15-21 severe): 2 Source: Developed by Drs. Vito Yanez, Madalyn Rivera, Maury Ernst and colleagues, with an educational camelia from [employer]. ASHA-7 Assessment Billing ASHA-7 Assessment Tool: ASHA-7 Assessment 33671 Review of Systems Const Denies chills, Denies fatigue, Denies fever(s), Denies headache(s) and Denies weakness Eyes Denies change in vision ENT Denies dizziness, Denies headache(s), Denies hearing loss, Denies nasal congestion, Denies sinus pain, Denies sinus pressure and Denies sore throat Card Denies chest pain, Denies lightheadedness, Denies dyspnea and Denies other (palpitations) Resp Denies cough, Denies dyspnea and Denies wheezing GI Denies abdominal pain, Denies melena, Denies hematochezia, Denies change in bowel habits, Denies dyspepsia and Denies nausea Denies hematuria and Denies dysuria Musc Denies abnormal gait, Denies myalgias, Denies arthralgias, Denies numbness and Denies tingling Skin/Breast Denies rash, Denies unusual bruising and Denies wounds Neuro Denies abnormal gait, Denies dizziness, Denies headache(s), Denies memory loss, Denies numbness, Denies Sensory deficit (Neuro), Denies tingling and Denies weakness Psych Denies anxiety, Denies depression and Denies memory loss Endo Denies cold intolerance, Denies fatigue, Denies heat intolerance, Denies polydipsia and Denies polyuria Kyle/Lymph Denies easy bleeding and Denies easy bruising Aller/Immun Denies wheezing Physical exam (Primary Care) Vital Signs: Last Vital Signs Temp 98.6 F 12/21/24 16:02 Pulse 114 H 12/21/24 16:02 Resp 16 12/21/24 16:02 BP 128/73 12/21/24 16:02 Pulse Ox 98 12/21/24 16:02 Oxygen Delivery Method Room Air 12/21/24 16:02 BMI result Body Mass Index 30.4 Tobacco/Smoking Status: Tobacco use Status Tobacco use date assessed 12/21/24 12/21/24 16:01 Patient Tobacco Use Status Never used Tobacco 12/21/24 16:01 e-Cigarette/Vaping Use Currently Using 12/21/24 16:01 PHQ-9: PHQ-9 Score PHQ-9: Total score 1 12/21/24 16:53 Depression Screening Interpretation: Negative Thrive Assessment: Date of Thrive Assessment Date Thrive assessed 12/21/24 12/21/24 16:01 Currently or been in a relationship where the following occur: No concerns reported Const General: no acute distress, well developed, alert and awake Nutritional Appearance: well nourished Orientation/consciousness: patient oriented x3 HENMT Head: Yes normocephalic and Yes atraumatic Ears: hearing grossly normal bilaterally and TM's normal bilaterally General nose exam: Normal external nose present and Normal nares present Mouth: Normal oral and palatal mucosa present and moist mucous membranes Teeth and gingiva: dentition normal Throat: Yes posterior oropharynx normal Eyes General: appearance normal, both eyes and all related structures Pupils: Equal, round and reactive pupils present and Pupil accommodation reflex normal EOM: EOMs intact bilaterally Neck Neck: Yes normal visual inspection, Yes no lymphadenopathy and Yes trachea midline Thyroid: Thyroid normal Carotids: no bruits Lymphatic: no lymphadenopathy noted Chest Chest palpation & inspection: normal inspection of the chest Resp Effort & Inspection: normal respiratory effort Auscultation: clear to auscultation bilaterally Cardio Rate: regular rate Rhythm: regular rhythm Heart sounds: S1 normal heart sound present, S2 normal heart sound present, no gallops, no murmurs and no rubs Bruits: no abdominal aortic bruits and no carotid bruits GI Palpation (GI): No Abdominal aortic bruit present, Soft to palpation, nontender, No hepatosplenomegaly present and No Rebound tenderness present Auscultation: normal bowel sounds General: Yes no CVA tenderness Back/Spine/Pelvis Back: no CVA tenderness Cervical Spine: cervical ROM normal and No Cervical spine tenderness Thoracic/Lumbar Spine: thoraco-lumbar ROM normal, No pain with thoraco-lumbar ROM, No thoracic spinal tenderness and No lumbar spinal tenderness Skin Lesions: no lesions Rashes: no rashes Trauma: no lacerations or abrasions Wounds: no wounds Nails: normal Neuro General: patient oriented x3 Cranial nerves: Yes Equal, round and reactive pupils present Cognition (Neuro): normal cognition Gait exam (Neuro): Normal gait present Motor exam (neuro): 5/5 motor strength present throughout Sensory Exam: No Sensory deficit (Neuro) Deep tendon reflexes (DTR's): Right patellar reflex intensity grade: 2+ and Left patellar reflex intensity grade: 2+ Extrem General: Yes normal to inspection and No edema Psych Appearance: grossly normal Affect: normal affect Attitude: cooperative Thought process: Normal thought process present Coding Level of Care Code Est Pt Level 3 (99597) Est Pt Prev Care 18-39y(65379) Diagnoses Adult general medical examination Z00.00 Depression with anxiety F41.8 Attention-deficit hyperactivity disorder, unspecified type F90.9 Elevated LDL cholesterol level E78.00 Additional Codes ASHA-7 Assessment Billing - ASHA-7 Assessment Tool: ASHA-7 Assessment 83245 ([id number]) PHQ-9 - 75174 - PHQ-9 Billing: Yes ([id number]) Assessment & Plan Assessment & Plan (1) Adult general medical examination: Code(s): Z00.00 - Encounter for general adult medical examination without abnormal findings Category: Medical Plan: 19-year-old male presents for complete physical exam Exam within limits Encouraged healthy diet with active lifestyle and plenty of exercise (2) Depression with anxiety: Code(s): F41.8 - Other specified anxiety disorders Category: Medical Plan: Well controlled on current medication regimen and patient's medications are managed by his psych med provider. (3) Attention-deficit hyperactivity disorder, unspecified type: Code(s): F90.9 - Attention-deficit hyperactivity disorder, unspecified type Category: Medical Plan: Stable Medication managed by his psych med provider (4) Elevated LDL cholesterol level: Code(s): E78.00 - Pure hypercholesterolemia, unspecified Category: Medical Plan: Check labs Will discuss with patient at follow up Orders: Orders UA CC w/rflx Micro + Cult Today Z00.00 - Encounter for general adult medical examination without abnormal findings CT NG by PCR Urine Today Z11.3 - Encounter for screening for infections with a predominantly sexual mode of transmission Hepatitis B,C Profile Today Z11.3 - Encounter for screening for infections with a predominantly sexual mode of transmission HIV Ab/Ag Today Z11.3 - Encounter for screening for infections with a predominantly sexual mode of transmission Comprehensive [place]. Panel Fast Today Z00.00 - Encounter for general adult medical examination without abnormal findings Complete Blood Count Auto Diff Today Z00.00 - Encounter for general adult medical examination without abnormal findings Microalbumin, Random (w Creat) Today I10 - Essential (primary) hypertension Lipid Panel Today Z00.00 - Encounter for general adult medical examination without abnormal findings TSH reflex Free T4 Today Z00.00 - Encounter for general adult medical examination without abnormal findings Syphilis Screen Today Z11.3 - Encounter for screening for infections with a predominantly sexual mode of transmission
[2024-12-21 16:02] VITALS: BP 128/73; PULSE 114; RESP 16; TEMP 37; O2SAT 98; BMI 30.4
--- OUTSIDE RECORDS SUMMARY | 2024-12-21 16:14 | XMS_ITS | Clinical Summary ---
Author Organization [facility] Address [address] [facility] [address] [place] [address] Phone Care Team Providers Care Devops Solutions Architect Name Role Phone Branch, Estella Bynum MD Primary Care Provider [phone] Allergies No known active allergies Medications buPROPion XL (WELLBUTRIN XL) 150 MG 24 hr tablet Take 150 mg by mouth 1 (one) time each day 3 Active cetirizine (ZyrTEC) 10 MG tablet Take 10 mg by mouth 4 Active clindamycin-porfirio zoyl peroxide (BenzaClin) gel Apply 1 application. topically 0 Active FLUoxetine (PROzac) 40 MG capsule Take 40 mg by mouth 1 (one) time each day 3 Active Active Problems Problem Noted Date Diagnosed Date Depressive disorder 11/19/2022 11/19/2022 Dyslexia 11/19/2022 11/19/2022 Mixed receptive-expressive language disorder 11/19/2022 Myopia 11/19/2022 11/19/2022 Prehypertension 11/19/2022 11/19/2022 Immunizations Immunization Administration Dates Next Due DT 05/08/2008,10/20/2005,2004 ,2004 DTaP / Hep B / IPV 2004 HPV, Quadrivalent 03/12/2020,03/08/2019 Hep A, 2 Dose 04/14/2022,03/05/2021 Hep B, Unspecified 10/20/2005,2004 HiB 06/30/2005,2004,2004 ,2004 IPV 05/08/2008,2004,2004 Influenza LAIV (Nasal) 02/12/2015,03/15/2014, Influenza Whole 01/30/2009, 8,02/15/2007,02/10/2006,05/19,03/02/2005 MMR 05/08/2008,04/09/2005 Meningococcal, Unspecified 03/05/2021,01/20/2016 Pfizer SARS-COV-2 04/12/2021,09/12/2020,08/23/19 21 Tdap 01/20/2016 Social History Tobacco Use Types Packs/Day Years Used Date Smoking Tobacco: Never Assessed Sex and Gender Information Value Date Recorded Sex Assigned at Not on file Legal Sex Male 11:41 AM EST Gender Identity Not on file Sexual Orientation Not on file Last Filed Vital Signs Vital Sign Reading Time Taken Comments Blood Pressure 122/82 11/19/2022 2:46 PM EDT Pulse 111 11/19/2022 2:46 PM EDT Temperature - - Respiratory Rate - - Oxygen Saturation 96% 11/19/2022 2:46 PM EDT Inhaled Oxygen Concentration - - Weight 101 kg (223 lb) 11/19/2022 2:46 PM EDT Height 177.8 cm (5' 10 ) 11/19/2022 2:46 PM EDT Body Mass Index 32 11/19/2022 2:46 PM EDT Plan of Treatment Health Maintenance Due Date Last Done Comments Pneumococcal Vaccine: Peds ( 0 to 5 Years) and At-Risk Patients (6 to 49 Years) (1 of 2 - PCV) 2023 Influenza Vaccine (#1) 2024 5, 03/15/2014, 12/16/2012, Additional history exists Hepatitis B Vaccine Completed 10/20/2005, 2004, 2004 Insurance [employer] Care Teams Devops Solutions Architect Relationship Specialty Start Date End Date Estella Ivy MD [address] [place] [address], [place] [address] PCP - General Pediatrics 11/19/22
--- OUTSIDE RECORDS SUMMARY | 2024-12-21 16:14 | XMS_ITS ---
[facility] Name [facility] Organization Unknown Care Team Organization Name Specialty Phone Email Start Date End [facility]
[2024-12-21 17:03] VITALS: PULSE 96
== END 2024-12-21 17:03 | disposition home or self-care (01) ==
LOC: HO.HMCFM 15:55
PROVIDERS: PCP Family Medicine; Visit Provider Family Medicine
DX: Z00.00 Encounter for general adult medical examination without abnormal findings (principal); F41.8 Other specified anxiety disorders; F90.9 Attention-deficit hyperactivity disorder, unspecified type; E78.00 Pure hypercholesterolemia, unspecified

== ENCOUNTER → 2024-12-21 15:54 | Outpatient (BNVA) | payer OTHER, SELFPAY | PROVIDERS: PCP Family Medicine; Visit Provider Family Medicine | DX: Z00.00 Encounter for general adult medical examination without abnormal findings (principal); F41.8 Other specified anxiety disorders; F90.9 Attention-deficit hyperactivity disorder, unspecified type; E78.00 Pure hypercholesterolemia, unspecified | CPT/HCPCS: 96127 ==

== ENCOUNTER 2024-12-26 09:02 | Outpatient (REF) | payer OTHER, SELFPAY ==
[2024-12-26 09:43] LABS: MANUAL DIFF FLAG NO
--- OUTSIDE RECORDS SUMMARY | 2024-12-26 09:53 | XMS_ITS | Clinical Summary ---
Author Organization [facility] Address [address] [facility] [address] [place] [address] Phone Care Team Providers Care Scale Reclamation Tender Name Role Phone Branch, Estella Bynum MD Primary Care Provider [phone] Allergies No known active allergies Medications buPROPion [...] 2004, 2004 Insurance [employer] Care Teams Scale Reclamation Tender Relationship Specialty Start Date End Date Estella Ivy MD [address] [place] [address], [place] [address] PCP - General Pediatrics 11/19/22
[2024-12-26 10:39] LABS: Hematocrit 45.8 % (42.0-52.0); Hemoglobin 14.3 g/dl (14.0-18.0); Imm Gran Abs Auto 0.01 X10*3/uL (0.00-0.03); Imm Gran Pct Auto 0.2 % (0.0-0.4); Lymphocytes Absolute Auto 2.7 X10*3/uL (1.2-4.9); Mean Corpuscular HGB Conc 31.2 g/dl (31.0-36.0); Mean Corpuscular Hemoglobin 27.6 pg (27.0-33.0); Mean Corpuscular Volume 88.2 fL (80.0-98.0); NRBC Abs Auto 0.000 X10*3/uL (0.0-0.012); NRBC Pct Auto 0.0 /100WBC (0.0-0.2); Platelet Count 220 X10*3/uL (160-400); Red Blood Count 5.19 X10*6/uL (4.60-5.80); White Blood Count 5.5 X10*3/uL (4.8-10.8)
[2024-12-26 10:55] LABS: Appearance Urine Clear; Glucose Urine UA Negative (Negative); PH 6.5 (5.0-9.0); Specific Gravity - Urine 1.015 (1.005-1.025)
[2024-12-26 11:03] LABS: Alanine Aminotransferase 78 U/L (0-40); Albumin Level 4.7 g/dL (3.5-5.0); Alkaline Phosphatase 96 U/L (39-117); Anion Gap 12 (12-20); Aspartate Amino Transferase 55 U/L (5-37); Blood Urea Nitrogen 14 mg/dL (9-16); Calcium 9.0 mg/dL (8.4-10.2); Carbon Dioxide 27 mmol/L (22-29); Chloride 106 mmol/L (96-108); Cholesterol 187 mg/dL (<200); Estimated Glomerular Filt Rate > 60; HDL Cholesterol 46 mg/dL (>40); Potassium 4.5 mmol/L (3.3-5.1); Sodium 140 mmol/L (135-145); Total Protein 7.5 g/dL (6.5-8.0); Triglycerides 69 mg/dL (<150)
[2024-12-26 11:15] LABS: HBS Num1 6.49 mIU/mL (0-7.99); HBc Num1 0.15 S/CO (0.00-0.79); HBsAGNum1 0.50 S/CO (0.00-0.99); HIV Num 1 0.06 S/CO (0.00-0.99); Hepatitis B Surface Antigen Negative (Negative); Syphilis Screen Nonreactive (Nonreactive); ~HepC Num1 0.10 S/CO (0.00-0.79); ~Hepatitis B Surface Antibody NONREACTIVE (Nonreactive); ~Hepatitis C Antibody Nonreactive (Nonreactive)
[2024-12-26 12:49] LABS: CT PCR Urine NOT DETECTED (Not Detect.); NG PCR Urine NOT DETECTED (Not Detect.)
== END 2024-12-26 09:03 | disposition home or self-care (01) ==
LOC: HO.LAB 09:02
PROVIDERS: PCP Family Medicine; Visit Provider Family Medicine
DX: Z00.00 Encounter for general adult medical examination without abnormal findings (principal); Z11.3 Encounter for screening for infections with a predominantly sexual mode of transmission; Z11.8 Encounter for screening for other infectious and parasitic diseases; Z11.59 Encounter for screening for other viral diseases; Z11.4 Encounter for screening for human immunodeficiency virus [HIV]; I10 Essential (primary) hypertension
CPT/HCPCS: 80053; 80061; 81003; 82043; 82570; 84443; 85025; 86704; 86706; 86780; 86803; 87340; 87389; 87491; 87591

== ENCOUNTER 2025-01-23 18:57 | Emergency (ER) | payer OTHER, SELFPAY ==
--- NOTE | ~2025-01-23 | XR_ITS ---
CLINICAL HISTORY: stepped on nail 3 view right foot Comparison: None provided Findings: Bones intact. No dislocations. No significant arthritic change or erosions. Accessory ossicle adjacent to the cuboid. No radiopaque foreign body. Mildly diffuse soft tissue swelling. IMPRESSION: 1. No acute fracture. This document has been electronically signed by: Deni Barbosa MD on 01/23/2025 19:59:22
[2025-01-23 19:23] VITALS: BP 132/67; PULSE 79; RESP 18; TEMP 37; O2SAT 95; BMI 30.8
--- NOTE | 2025-01-23 19:24 | ED_ITS ---
HPI - Skin/Abscess/Foreign Bdy General Chief complaint: Extremity Injury, Lower Stated complaint: Stepped on vinny nail Time Seen by Provider: 01/23/25 22:15 Related Data Home Medications ?Medication ?Instructions ?Recorded ?Confirmed fluoxetine 40 mg capsule 40 mg PO DAILY 09/15/2312/25 lisdexamfetamine 10 mg capsule 20 mg PO DAILY 09/15/23 01/11/25 Previous Rx's ?Medication ?Instructions ?Recorded guanfacine 1 mg tablet,extended 1 mg PO DAILY as direc deborah #30 tabs 03/03/24 release 24 hr Allergies Allergy/AdvReac Type Severity Reaction Status Date / Time Seasonal Allergies Allergy Mild Watery Eye Verified 01/23/25 19:26 [facility] Past Medical History Medical History Developmental language disorder IFG (impaired fasting glucose) Daytime somnolence Snoring Non-restorative sleep ADHD Surgical History History of placement of ear tubes Family History Family History Father High blood pressure Paternal Grandfather High blood pressure Melanoma Maternal Grandfather Substance abuse in family Paternal Uncle Mental health disorder Unknown Mental health disorder Social History Social History (Updated 12/21/24 @ 16:01 by Thelma Chanel MA) Household Members: Family Household Members Other:: Mother, Father, Brother, and Brother's Girlfriend Housing: House Are you a primary director of home care hospice to a significant other at home: No Do you presently have visiting nurse or other home services: No Alcohol intake: current Alcohol intake frequency: holidays/special occasions only Alcohol type: beer and hard liquor Patient Tobacco Use Status: Never used Tobacco e-Cigarette/Vaping Use: Currently Using Second Hand Smoke Exposure: No Substance Use Type: Marijuana Special debbi needs: No Advance Directives: No Advance Directives Information Provided: No Do you have a plan to hurt others: No Plan service: No Current occupational status: unemployed Current occupational exposures/hazards: No Cognitive needs: No Hearing needs: No Vision needs: No Physical Exam Vital Signs: Vital Signs: Last Vital Signs Temp 98.6 F 01/23/25 19:23 Pulse 79 09/30/25 19:23 Resp 18 01/23/25 19:23 BP 132/67 01/23/25 19:23 Pulse Ox 95 01/23/25 19:23 O2 Del Method Room Air 01/23/25 19:23 BMI result Body Mass Index 30.8 Course Course Course Narrative: This is an RME: Additional HPI, ROS, PE not included below will be deferred to primary provider. RME assessment and note performed by: Asmita Garcia PA-C This is a 19-year-old male who presents emergency department with concerns of right foot pain status post stepping on a vinny nail. No appreciable wound noted to the foot however patient reports that it did draw blood. He states that he is wearing Crocs at that time. Noo obvious puncture wound noted, no breakdown of tissue Plan: X-rays to rule out foreign body. tdap Reevaluation(s) Reevaluation #1: Patient left without completing treatment. Medications Administered Discontinued Medications Generic Name Dose Route Start Last Admin Trade Name Freq PRN Reason Stop Dose Admin Diphtheria/Tetanus/Acell Pertussis 0.5 ml 01/23/25 19:25 01/23/25 21:54 Diphth,Pertus(Acell),Tet Adult 0.5 Ml Syringe IM 01/23/25 19:26 0.5 ml .ONCE ONE Administration Discharge Plan Discharge Clinical Impression: Puncture wound Patient Disposition: Left W/O Completing Treatment Prescriptions: No Action guanfacine 1 mg tablet extended release 24 hr 1 mg PO DAILY Qty: 30 0RF fluoxetine 40 mg capsule 40 mg PO DAILY Rx Instructions: Last Filled 02/03/24 lisdexamfetamine 10 mg capsule 20 mg PO DAILY Rx Instructions: Last filled 02/02/24 Discharge Date/Time: 01/23/25 22:33
[2025-01-23] MEDS: Diphth,Pertus(ACell),Tet Adult 0.5 ML SYRINGE IM (21:54)
== END 2025-01-23 22:33 | disposition left against medical advice (07) ==
PROVIDERS: Emergency Provider Emergency Medicine; PCP Family Medicine
DX: S91.331A Puncture wound without foreign body, right foot, initial encounter (principal); W22.8XXA Striking against or struck by other objects, initial encounter; Y93.9 Activity, unspecified; Y92.9 Unspecified place or not applicable; Z23 Encounter for immunization; Z53.29 Procedure and treatment not carried out because of patient's decision for other reasons
CPT/HCPCS: 73630; 90471; 90715; 99281; 99284

== ENCOUNTER → 2025-01-23 19:25 | Outpatient (BNV) | payer OTHER, SELFPAY | PROVIDERS: Visit Provider Radiology Diagnostic Radiology | DX: S91.341A Puncture wound with foreign body, right foot, initial encounter (principal) | CPT/HCPCS: 73630 ==